=== PATIENT | female | born 1950 | race Caucasian/White ===

== ENCOUNTER 2017-07-23 11:42 | Emergency (ER) | payer OTHER, BC ==
[~2017-07-23] VITALS: Ht 170.2 cm; Wt 122.5 kg
[2017-07-23 11:46] VITALS: Ht 170.2 cm; Wt 122.5 kg
[2017-07-23 12:45] LABS: BASOPHIL % 0.5 % (0-2); PLATELET COUNT 250 x10^3mcL (130-400)
[2017-07-23 12:50] LABS: CALCIUM 8.8 mg/dL (8.5-10.1); CHLORIDE SERUM 103 mmol/L (98-107); CREATININE SERUM 0.7 mg/dL (0.6-1.0); GFR1 > 60 mL/min; GLUCOSE SERUM 101 mg/dL (74-106); SODIUM SERUM 140 mmol/L (136-145)
[2017-07-23 12:55] LABS: ALBUMIN 3.5 g/dL (3.4-5.0); ALKALINE PHOSPHATASE 83 U/L (46-116); ALT/SGPT 17 U/L (14-59); AST/SGOT 11 U/L (15-37); BILIRUBIN TOTAL 0.4 mg/dL (0.20-1.00); TOTAL PROTEIN, SERUM 6.9 g/dL (6.4-8.2)
[2017-07-23 14:39] VITALS: BP 169/95
== END 2017-07-23 14:39 | disposition home or self-care (01) ==
LOC: ED 11:42
PROVIDERS: Emergency Medicine
DX: R07.89 Other chest pain (principal); M54.2 Cervicalgia; I10 Essential (primary) hypertension; Z95.5 Presence of coronary angioplasty implant and graft
CPT/HCPCS: 36415; 83880; J1885